=== PATIENT | male | born 1985 | race Caucasian/White ===

== ENCOUNTER 2021-08-02 10:04 | Emergency (ER) | payer BC, SELFPAY ==
[2021-08-02 10:17] VITALS: BP 111/73; PULSE 100; RESP 18; TEMP 38.2; O2SAT 96
--- NOTE | 2021-08-02 10:38 | ED.URI ---
HPI - URI/Sore Throat General Chief Complaint: Upper Respiratory Infection Stated Complaint: Shortness of breath,Cough,Vomiting,Diarrhea Source: patient and RN notes reviewed Limitations: no limitations History of Present Illness HPI Narrative: The unvaccinated patient, a non-smoker/nondrinker, presents with nearly weeklong history of cough. Family members are Covid positive; he denies known fever, wheeze, CP, vomiting, S OB, rash. Symptoms are mild to moderate, unrelieved with OTC Mucinex, associated with fever. Prior earlier test was negative; now here [id number] testing for rapid antigen is quickly positive. Related Data Allergies Allergy/AdvReac Type Severity Reaction Status Date / Time Penicillins Allergy Severe Swelling Verified 08/02/21 10:43 of Lip/Tongue/Throat Review of Systems Review of Systems: General/Constitutional: No weight loss, POSSIBLE fever Eyes: N0: Redness,discharge Ears/Nose/Throat: No: Epistaxis,ear discharge Respiratory: Denies: Hemoptysis Gastrointestinal: No Vomiting, Bleeding-rectal Skin: No Lumps, eruption Neurologic: No Focal Weakness,Sz Hematologic: Denies: Petechiae/Purpura Psychiatric: No: Suicida ideationl All Other Systems: Reviewed and Negative PMFSH Comments At time of signature, agree with nursing past medical, surgical, social and family history. There is no relevant family history pertinent to the presenting complaint Exam Narrative: General Appearance: Well appearing, Well nourished EYE: PERRLA, Conjunctiva clear Ears: Auditory canal normal, TM normal Nose: Rhinorrhea, Mucousal erythema Mouth/Throat: MM moist, Uvula midline, Pharyngeal erythema Neck: Supple, No adenopathy Respiratory: No respiratory distress, Breath sounds equal, Clear to auscultation Cardiovascular: RRR, No JVD Musculoskeletal: Non tender, Normal strength Skin: Warm, Dry Neurological: A&O x3, CN II-XII intact Psychiatric: Normal mood, Normal affect Course Vital Signs Vital signs: Vital Signs Temperature 100.7 F H 08/02/21 10:17 Pulse Rate 100 08/02/21 10:17 Respiratory Rate 18 08/02/21 10:17 Blood Pressure 111/73 08/02/21 10:17 Pulse Oximetry 96 08/02/21 10:17 Temperature 100.7 F H 08/02/21 10:17 Pulse Rate 100 08/02/21 10:17 Respiratory Rate 18 08/02/21 10:17 Blood Pressure 111/73 08/02/21 10:17 Pulse Oximetry 96 08/02/21 10:17 MDM - URI/Sore Throat Lab Data Labs: Lab Results 08/02/21 Range/Units 10:15 POC SARS CoV-2 Ag Positive (Negative) Discharge Plan Discharge Clinical Impression: COVID-19 Patient Disposition: Home, Self-Care Condition: Stable Instructions: COVID-19 (Coronavirus Disease 2019) (ED) Additional Instructions: Get vitamins D, B, C, zinc and aspirin when at pharmacy Consider getting pulse oximeter- return for walking pulse ox less than 94; considering watching Dr. Figueredo 'If you get Covid 19' Prescriptions: New benzonatate [Tessalon Perles] 100 mg capsule 100 mg PO TID Qty: 20 RF: 1 codeine-guaifenesin 10-100 mg/5 mL liquid 7.5 ml PO Q6H PRN (Reason: cough) Qty: 118 RF: 0 azelastine 137 mcg (0.1 %) aerosol,spray 137 mcg NASAL Q12H Qty: 30 RF: 0 Follow-up/Referrals: PHYSICIAN,CASHIER GAMBLING [Primary Care Provider] - Stand Alone Forms: Work/School Release IP
== END 2021-08-02 10:51 | disposition home or self-care (01) ==
PROVIDERS: Emergency Provider Emergency Medicine
DX: U07.1 COVID-19 (principal)
CPT/HCPCS: 87426; 99213; C9803; G0463